=== PATIENT | male | born 1945 | race Caucasian/White ===

== ENCOUNTER 2021-12-07 12:16 | Emergency (ER) | payer SELFPAY ==
[~2021-12-07] VITALS: Ht 170.2 cm; Wt 73.9 kg
--- NOTE | 2021-12-07 12:21 | NUR ---
Patient c/o chest pain , placed him on a monitor, 12 lead EKG shows STEMI, Dr mccray at bedside. I called [facility] transfer center and spoke to Cyndie who took info and will call back with answer.
[2021-12-07] MEDS ORDERED: ASPIRIN 325 MG TABLET ONE (12:22)
[2021-12-07] MEDS ORDERED: NITROGLYCERIN 0.4 MG/TAB BOTTLE SL ONE ×2 (12:22→12:30)
[2021-12-07 12:29] VITALS: BP 162/94
[2021-12-07] MEDS ORDERED: ASPIRIN 325 MG TABLET PO ONE (12:30)
[2021-12-07 12:33] LABS: HEMATOCRIT 45.5 % (36.7-47.1); MEAN CORPUSCULAR HEMOGLOBIN 29.6 uug (23.8-33.4); MEAN CORPUSCULAR VOLUME 87.7 fL (73.0-96.2); PLATELET COUNT (AUTO) 259 K/uL (152-348)
--- NOTE | 2021-12-07 12:33 | NUR ---
Dr Urena (dot compliance specialist) from [facility] is on the phone with Dr Helton
[2021-12-07] MEDS ORDERED: HEPARIN SODIUM,PORCINE/PF 50 UNIT/5 ML SYR IV STA (12:34)
[2021-12-07] MEDS ORDERED: CLOPIDOGREL 75 MG TABLET ONE (12:35)
[2021-12-07] MEDS ORDERED: HEPARIN SODIUM,PORCINE 5,000 UNITS/ML VIAL ONE (12:35)
--- NOTE | 2021-12-07 12:41 | NUR ---
Patient states chest pain has diminished significantly.
[2021-12-07] MEDS ORDERED: CLOPIDOGREL 75 MG TABLET PO ONE (12:45)
--- NOTE | 2021-12-07 12:45 | NUR ---
[facility] here to transport patient to [facility]. Dr bedoya accepting
--- NOTE | 2021-12-07 12:57 | NUR ---
Spoke to [facility] cardiac cath lab technologist nurse Kary and gave him patient report
[2021-12-07 13:11] LABS: CARBON DIOXIDE 22 mmol/L (21-32); CHLORIDE 104 mmol/L (98-107); CREATININE 1.3 mg/dL (0.6-1.3); GLUCOSE 138 mg/dL (74-106); POTASSIUM 2.9 mmol/L (3.5-5.1); UREA NITROGEN, BLOOD 17 mg/dL (7-18)
--- NOTE | 2021-12-07 14:38 | NUR ---
faxed labs to Neftali martinez at [phone]
== END 2021-12-07 12:50 | disposition short-term general hospital (02) ==
LOC: ER 12:16
DX: I21.3 ST elevation (STEMI) myocardial infarction of unspecified site (principal)
CPT/HCPCS: 99291; 96374; 80048; 85025; 84484; 36415; 93005; 71045; J1644; A4663; J1642